=== PATIENT | male | born 1955 ===

== ENCOUNTER 2019-01-24 21:12 | Emergency (ER) | payer OTHER ==
--- NOTE | 2019-01-24 21:13 | UC ---
Skin Complaint HPI - HPI Summary HPI Summary: 63 yo male presents with tick bite. He tells me that tonight his noticed a tick attached to pt's right calf. He came directly to . He is unsure how long it has been attached, but is confident that it was not on him last night. Mild itch to the area. No pain - History of Current Complaint Time Seen by Provider: 01/24/19 21:13 Stated Complaint: TICK BITE Hx Obtained From: Patient Onset/Duration: Sudden Onset Current Severity: None - Allergy/Home Medications Allergies/Adverse Reactions: Allergies Allergy/AdvReac Type Severity Reaction Status Date / Time Penicillins Allergy Hives Verified 01/24/19 21:22 Home Medications: Home Medications NK [No Home Medications Reported] 01/24/19 [History Confirmed 01/24/19] PMH/Surg Hx/FS Hx/Imm Hx - Additional Past Medical History Additional PMH: None - Surgical History Surgical History: None - Family History Known Family History: Positive: Hypertension - Social History Occupation: Employed Full-time Lives: With Family Alcohol Use: Occasionally Substance Use Type: None Smoking Status (MU): Never Smoked Tobacco Review of Systems All Other Systems Reviewed And Are Negative: Yes Constitutional: Positive: Negative Skin: Positive: Other - Tick bite Respiratory: Positive: Negative Cardiovascular: Positive: Negative Neurovascular: Positive: Negative Neurological: Positive: Negative Psychological: Positive: Negative Physical Exam - Summary Physical Exam Summary: GENERAL: NAD. WDWN. No pain distress. SKIN: RIGHT POSTERIOR CALF: Tick embedded within the skin with 5mm area of erythema. NTTP. No discharge, streaking, or bleeding. CHEST: No accessory muscle use. Breathing comfortably and in no distress. CV: Pulses intact. Cap refill <2seconds NEURO: Alert. PSYCH: Age appropriate behavior. Triage Information Reviewed: Yes Vital Signs: Vital Signs: Temp Pulse Resp BP Pulse Ox 98.8 F 48 20 172/80 100 01/24/19 21:16 01/24/19 21:16 01/24/19 21:16 01/24/19 21:16 01/24/19 21:16 Vital Signs Reviewed: Yes Course/Dx - Course Course Of Treatment: Tick removed without difficulty with tick twisters. Tick not engorged. Given that tick is not engorged and pt is confident it was not attached yesterday - no treatment at this time. Risk of lyme disease transmission is low. Advised to monitor to for signs/symptoms of lyme and f/u if he develops - Diagnoses Provider Diagnosis: Tick bite Discharge - Sign-Out/Discharge Documenting (check all that apply): Patient Departure All imaging exams completed and their final reports reviewed: No Studies - Discharge Plan Condition: Stable Disposition: HOME Patient Education Materials: Lyme Disease (ED), Tick Bite (ED) Referrals: Arpan Teran MD [Primary Care Provider] - Additional Instructions: TICK BITE: You have been bitten by a tick. Once the tick is removed, these "bites" usually cause no problems. Tick fever, tick paralysis, [place] Spotted fever, and Lyme disease are uncommon -- but you should mention this tick bite to your doctor if you develop unusual symptoms in the next several weeks. If you develop any of the following, please see your physician promptly: (1) Fever, chills, or generalized malaise associated with a headache. (2) A red round area at the site of the bite (or elsewhere) (3) Joint pain, joint swelling or generalized weakness. (4) Redness, swelling, or drainage at the site of the bite. - Billing Disposition and Condition Condition: STABLE Disposition: Home
[2019-01-24 21:21] VITALS: BP 172/80
== END 2019-01-24 21:25 | disposition home or self-care (01) ==
LOC: UCEAST 21:12
DX: S80.861A Insect bite (nonvenomous), right lower leg, initial encounter (principal); Z88.0 Allergy status to penicillin; W57.XXXA Bitten or stung by nonvenomous insect and other nonvenomous arthropods, initial encounter; Y92.9 Unspecified place or not applicable
CPT/HCPCS: 99201; G0463